=== PATIENT | male | born 1985 | race Caucasian/White ===

== ENCOUNTER 2025-05-05 20:30 | Emergency (ER) | payer OTHER ==
[~2025-05-05] VITALS: Ht 175.3 cm; Wt 105.0 kg
[2025-05-05 20:57] VITALS: O2SAT 99
[2025-05-05 23:49] VITALS: BP 154/88; PULSE 60; RESP 16; TEMP 36.9; O2SAT 100
== END 2025-05-05 23:51 | disposition home or self-care (01) ==
LOC: ER 20:30
DX: T75.4XXA Electrocution, initial encounter (principal); I10 Essential (primary) hypertension; W86.8XXA Exposure to other electric current, initial encounter; Y93.G1 Activity, food preparation and clean up; Y92.89 Other specified places as the place of occurrence of the external cause; Y99.0 Civilian activity done for income or pay
CPT/HCPCS: 99282